=== PATIENT | male | born 1960 | race Asian ===

== ENCOUNTER 2018-10-03 10:25 | Inpatient (IN) | payer BC, OTHER ==
[~2018-10-03] VITALS: Ht 172.7 cm; Wt 120.9 kg
[~2018-10-03 10:25] MED LIST: ASPI-1158 PO; ASPI-986 PO; COR25 PO; FEBU40TA PO; FURO-151 PO; INSU100I3 SQ; INSU3INS6 SQ; LIRA0.6P SQ; LOSA25TA12 PO; PRAS10TA6 PO; ROSU10TA PO; proair
[2018-10-03 12:26] LABS: HEMATOCRIT. 48.8 % (42.0-52.0); HEMOGLOBIN. 15.5 g/dL (14.0-18.0); MEAN CORPUSCULAR VOLUME 88.4 fL (80.0-94.0); MEAN PLATELET VOLUME 8.9 fl (7.4-10.4); PLATELET 158 x1000/uL (130-400); RED BLOOD CELL COUNT 5.52 mill/uL (4.7-6.1); RED CELL DISTRIBUTION WIDTH 20.5 % (11.6-14.6)
[2018-10-03 12:34] LABS: CHLORIDE 108 mEq/L (98-107)
[2018-10-03 12:59] LABS: PLATELET ESTIMATE NORMAL
[2018-10-03] MEDS ORDERED: ENALAPRIL 2.5MG/2ML VIAL 2ML IV ONE (13:00)
[2018-10-03] MEDS ORDERED: FUROSEMIDE 40MG/4ML VIAL IVP ONE (13:00)
[2018-10-03] MEDS ORDERED: DEXTROSE 50% WATER 50ML SYRINGE IV PRN (13:45)
[2018-10-03] MEDS ORDERED: CLONIDINE 0.1MG TABLET PO PRN (17:00)
[2018-10-03] MEDS ORDERED: ONDANSETRON HCL 4MG/2ML INJ IV PRN (17:00)
[2018-10-03] MEDS ORDERED: ACETAMINOPHEN 325MG TABLET PO PRN (17:00)
[2018-10-03] MEDS ORDERED: HYDROCODONE/ACETAMINOPHEN 5/325MG TABLET PO PRN (17:00)
[2018-10-03] MEDS ORDERED: DOCUSATE SODIUM 100MG CAPSULE PO PRN (17:00)
[2018-10-03] MEDS ORDERED: MAGNESIUM/ALUMINUM HYDROXIDE/SIMETHICONE 30ML UDC PO PRN (17:00)
[2018-10-03 22:20] VITALS: BP 89/59
[2018-10-03 22:30] VITALS: BP 89/59
[2018-10-03] MEDS: INSULIN LISPRO 100 UNITS/ML SUBCUT SCH (23:00)
[2018-10-03] MEDS: LOSARTAN POTASSIUM 25 MG TABLET PO SCH (23:00)
[2018-10-03] MEDS ORDERED: BLOOD SUGAR DIAGNOSTIC STRIP TEST SCH (23:00)
[2018-10-03] MEDS: BLOOD SUGAR DIAGNOSTIC STRIP TEST SCH (23:00)
[2018-10-03] MEDS: CARVEDILOL 25MG TABLET PO SCH (23:00)
[2018-10-04] VITALS: BP 108/66
[2018-10-04] MEDS: FUROSEMIDE 100MG/10ML VIAL IVP SCH ×3 (00:48→21:27)
[2018-10-04 04:00] VITALS: BP 105/54
[2018-10-04] MEDS: BLOOD SUGAR DIAGNOSTIC STRIP TEST SCH ×4 (06:13→21:28)
[2018-10-04] MEDS: INSULIN LISPRO 100 UNITS/ML SUBCUT SCH ×4 (06:15→21:46)
[2018-10-04 06:55] LABS: HEMOGLOBIN. 15.2 g/dL (14.0-18.0); MEAN CORPUSCULAR HEMOGLOBIN 28.4 pg (28.0-32.0); MEAN CORPUSCULAR VOLUME 87.7 fL (80.0-94.0); MEAN PLATELET VOLUME 9.6 fl (7.4-10.4); PLATELET 155 x1000/uL (130-400); RED BLOOD CELL COUNT 5.36 mill/uL (4.7-6.1); RED CELL DISTRIBUTION WIDTH 19.8 % (11.6-14.6)
[2018-10-04 08:00] VITALS: BP 96/59
[2018-10-04] MEDS: CARVEDILOL 25MG TABLET PO SCH ×2 (09:00→21:27)
[2018-10-04] MEDS: LOSARTAN POTASSIUM 25 MG TABLET PO SCH (09:00)
[2018-10-04] MEDS: ASPIRIN 81MG EC TABLET PO SCH (10:26)
[2018-10-04 10:47] LABS: PLATELET ESTIMATE NORMAL
[2018-10-04 12:00] VITALS: BP 96/61
[2018-10-04] MEDS ORDERED: METOLAZONE 2.5MG TABLET PO NR (13:00)
[2018-10-04 16:00] VITALS: BP 114/71
[2018-10-04 20:00] VITALS: BP 106/57
[2018-10-04 20:31] LABS: CLARITY URINE CLEAR (CLEAR); COLOR URINE YELLOW (YELLOW); KETONES URINE NEGATIVE (NEGATIVE); LEUKOCYTE ESTERASE URINE NEGATIVE (NEGATIVE); NITRITE URINE NEGATIVE (NEGATIVE); OCCULT BLOOD URINE NEGATIVE (NEGATIVE); PROTEIN URINE 1+ (NEGATIVE); SPECIFIC GRAVITY URINE 1.008 (1.005-1.030); UROBILINOGEN URINE 0.2 E.U./dL (0.2-1.0)
[2018-10-04] MEDS: ENOXAPARIN 150MG/ML SYR SUBCUT SCH (22:56)
[2018-10-05] VITALS: BP 124/86
[2018-10-05 04:00] VITALS: BP 100/76
[2018-10-05] MEDS: BLOOD SUGAR DIAGNOSTIC STRIP TEST SCH ×4 (06:29→20:53)
[2018-10-05] MEDS: INSULIN LISPRO 100 UNITS/ML SUBCUT SCH ×4 (06:30→21:07)
[2018-10-05 08:01] VITALS: BP 106/71
[2018-10-05 08:03] LABS: HEMOGLOBIN. 14.5 g/dL (14.0-18.0); MEAN CORPUSCULAR HEMOGLOBIN 27.9 pg (28.0-32.0); MEAN CORPUSCULAR VOLUME 88.5 fL (80.0-94.0); MEAN PLATELET VOLUME 9.6 fl (7.4-10.4); PLATELET 139 x1000/uL (130-400); RED BLOOD CELL COUNT 5.19 mill/uL (4.7-6.1); RED CELL DISTRIBUTION WIDTH 20.3 % (11.6-14.6)
[2018-10-05 08:28] LABS: INR 1.3; PROTHROMBIN TIME 12.7 sec (9.1-11.1)
[2018-10-05] MEDS: CARVEDILOL 25MG TABLET PO SCH (09:00)
[2018-10-05] MEDS: FUROSEMIDE 100MG/10ML VIAL IVP SCH ×2 (09:06→20:52)
[2018-10-05] MEDS: ENOXAPARIN 150MG/ML SYR SUBCUT SCH ×2 (09:07→20:54)
[2018-10-05] MEDS: LOSARTAN POTASSIUM 25 MG TABLET PO SCH (09:08)
[2018-10-05] MEDS: ASPIRIN 81MG EC TABLET PO SCH (09:08)
[2018-10-05 12:07] VITALS: BP 119/73
[2018-10-05 12:17] LABS: PLATELET ESTIMATE NORMAL
[2018-10-05] MEDS ORDERED: IPRATROPIUM/ALBUTEROL 0.5-3(2.5)MG/3ML NEB HHN PRN (13:15)
[2018-10-05 16:00] VITALS: BP 113/73
[2018-10-05] MEDS: IPRATROPIUM BROMIDE (0.02%) 0.5MG/2.5ML NEB HHN SCH ×2 (16:39→20:43)
[2018-10-05] MEDS: BUDESONIDE 0.5MG/2ML NEB HHN SCH ×2 (16:39→20:43)
[2018-10-05] MEDS ORDERED: MAGNESIUM 1 G PREMIX 100 ML IV NR (17:00)
[2018-10-05] MEDS: METOLAZONE 5MG TABLET PO SCH (17:11)
[2018-10-05] MEDS: MAGNESIUM OXIDE 400MG TABLET PO SCH (17:12)
[2018-10-05 20:00] VITALS: BP 104/59
[2018-10-05] MEDS: CARVEDILOL 12.5MG TABLET PO SCH (20:53)
[2018-10-06] VITALS: BP 109/66
[2018-10-06 04:00] VITALS: BP 117/75
[2018-10-06] MEDS: IPRATROPIUM BROMIDE (0.02%) 0.5MG/2.5ML NEB HHN SCH ×4 (04:29→21:43)
[2018-10-06] MEDS: BLOOD SUGAR DIAGNOSTIC STRIP TEST SCH ×4 (06:29→21:17)
[2018-10-06] MEDS: INSULIN LISPRO 100 UNITS/ML SUBCUT SCH ×4 (06:29→21:27)
[2018-10-06 07:06] LABS: HEMATOCRIT. 43.9 % (42.0-52.0); HEMOGLOBIN. 14.1 g/dL (14.0-18.0); MEAN CORPUSCULAR HEMOGLOBIN 28.1 pg (28.0-32.0); MEAN CORPUSCULAR VOLUME 87.7 fL (80.0-94.0); MEAN PLATELET VOLUME 9.5 fl (7.4-10.4); PLATELET 145 x1000/uL (130-400); RED BLOOD CELL COUNT 5.01 mill/uL (4.7-6.1); RED CELL DISTRIBUTION WIDTH 19.4 % (11.6-14.6)
[2018-10-06 08:00] VITALS: BP 98/64
[2018-10-06] MEDS: CARVEDILOL 12.5MG TABLET PO SCH ×2 (08:27→21:00)
[2018-10-06] MEDS: LOSARTAN POTASSIUM 25 MG TABLET PO SCH (08:28)
[2018-10-06] MEDS: MAGNESIUM OXIDE 400MG TABLET PO SCH (08:38)
[2018-10-06] MEDS: ASPIRIN 81MG EC TABLET PO SCH (08:38)
[2018-10-06] MEDS: FUROSEMIDE 100MG/10ML VIAL IVP SCH ×3 (08:38→17:41)
[2018-10-06] MEDS: METOLAZONE 5MG TABLET PO SCH ×2 (08:38→17:41)
[2018-10-06] MEDS: ENOXAPARIN 150MG/ML SYR SUBCUT SCH ×2 (08:38→21:23)
[2018-10-06] MEDS: GUAIFENESIN 200MG/10ML SUGAR FREE UDC PO PRN ×2 (08:44→16:00)
[2018-10-06] MEDS: BUDESONIDE 0.5MG/2ML NEB HHN SCH ×2 (10:21→21:42)
[2018-10-06 12:00] VITALS: BP 112/74
[2018-10-06] MEDS ORDERED: METOLAZONE 5MG TABLET PO NR (15:00)
[2018-10-06 16:00] VITALS: BP 111/84
[2018-10-06 20:00] VITALS: BP 95/74
[2018-10-07] VITALS: BP 123/80
[2018-10-07] MEDS: IPRATROPIUM BROMIDE (0.02%) 0.5MG/2.5ML NEB HHN SCH ×4 (01:15→21:49)
[2018-10-07 02:58] LABS: PLATELET ESTIMATE NORMAL
[2018-10-07 04:00] VITALS: BP 128/77
[2018-10-07] MEDS: BLOOD SUGAR DIAGNOSTIC STRIP TEST SCH ×4 (05:54→20:39)
[2018-10-07] MEDS: INSULIN LISPRO 100 UNITS/ML SUBCUT SCH ×4 (05:55→20:51)
[2018-10-07 06:52] LABS: HEMOGLOBIN. 14.5 g/dL (14.0-18.0); MEAN CORPUSCULAR HEMOGLOBIN 28.1 pg (28.0-32.0); MEAN CORPUSCULAR VOLUME 87.4 fL (80.0-94.0); MEAN PLATELET VOLUME 9.1 fl (7.4-10.4); PLATELET 145 x1000/uL (130-400); RED BLOOD CELL COUNT 5.14 mill/uL (4.7-6.1); RED CELL DISTRIBUTION WIDTH 19.6 % (11.6-14.6)
[2018-10-07 08:00] VITALS: BP 105/52
[2018-10-07] MEDS: BUDESONIDE 0.5MG/2ML NEB HHN SCH ×2 (08:30→21:49)
[2018-10-07] MEDS: ASPIRIN 81MG EC TABLET PO SCH (08:57)
[2018-10-07] MEDS: MAGNESIUM OXIDE 400MG TABLET PO SCH ×2 (08:58→17:50)
[2018-10-07] MEDS: ENOXAPARIN 150MG/ML SYR SUBCUT SCH (08:58)
[2018-10-07] MEDS: FUROSEMIDE 100MG/10ML VIAL IVP SCH ×3 (08:58→17:50)
[2018-10-07] MEDS: CARVEDILOL 12.5MG TABLET PO SCH ×2 (08:58→20:49)
[2018-10-07] MEDS: GUAIFENESIN 200MG/10ML SUGAR FREE UDC PO PRN ×2 (08:58→17:50)
[2018-10-07] MEDS: METOLAZONE 5MG TABLET PO SCH ×2 (08:58→17:50)
[2018-10-07] MEDS: LOSARTAN POTASSIUM 25 MG TABLET PO SCH (08:59)
[2018-10-07] MEDS ORDERED: MAGNESIUM 2 G PREMIX 50 ML IV NR (09:00)
[2018-10-07 12:00] VITALS: BP 111/72
[2018-10-07 12:40] LABS: PLATELET ESTIMATE NORMAL
[2018-10-07 16:00] VITALS: BP 111/70
[2018-10-07] MEDS ORDERED: ENOXAPARIN 150MG/ML SYR SUBCUT SCH (16:27)
[2018-10-07 20:00] VITALS: BP 116/78
[2018-10-07] MEDS: ENOXAPARIN 120MG/0.8ML SYR SUBCUT SCH (21:00)
[2018-10-08] VITALS: BP 112/64
[2018-10-08] MEDS: IPRATROPIUM BROMIDE (0.02%) 0.5MG/2.5ML NEB HHN SCH ×3 (01:38→21:53)
[2018-10-08 04:00] VITALS: BP 129/83
[2018-10-08] MEDS: BLOOD SUGAR DIAGNOSTIC STRIP TEST SCH ×4 (06:02→21:32)
[2018-10-08] MEDS: INSULIN LISPRO 100 UNITS/ML SUBCUT SCH ×4 (06:02→21:39)
[2018-10-08 08:00] VITALS: BP 108/74
[2018-10-08] MEDS: LOSARTAN POTASSIUM 25 MG TABLET PO SCH (09:00)
[2018-10-08 09:27] LABS: HEMATOCRIT. 48.1 % (42.0-52.0); HEMOGLOBIN. 15.4 g/dL (14.0-18.0); MEAN CORPUSCULAR HEMOGLOBIN 28.3 pg (28.0-32.0); MEAN CORPUSCULAR VOLUME 88.5 fL (80.0-94.0); MEAN PLATELET VOLUME 9.1 fl (7.4-10.4); PLATELET 146 x1000/uL (130-400); RED BLOOD CELL COUNT 5.44 mill/uL (4.7-6.1); RED CELL DISTRIBUTION WIDTH 19.4 % (11.6-14.6)
[2018-10-08] MEDS: METOLAZONE 5MG TABLET PO SCH ×2 (09:29→17:59)
[2018-10-08] MEDS: ASPIRIN 81MG EC TABLET PO SCH (09:29)
[2018-10-08] MEDS: MAGNESIUM OXIDE 400MG TABLET PO SCH ×2 (09:29→17:59)
[2018-10-08] MEDS: FUROSEMIDE 100MG/10ML VIAL IVP SCH ×2 (09:30→12:59)
[2018-10-08] MEDS: CARVEDILOL 12.5MG TABLET PO SCH ×2 (09:39→21:40)
[2018-10-08] MEDS: BUDESONIDE 0.5MG/2ML NEB HHN SCH (10:08)
[2018-10-08 10:53] LABS: PLATELET ESTIMATE NORMAL
[2018-10-08 12:00] VITALS: BP 119/85
[2018-10-08] MEDS ORDERED: METOLAZONE 10MG TABLET PO NR (12:00)
[2018-10-08] MEDS: ENOXAPARIN 120MG/0.8ML SYR SUBCUT SCH (13:04)
[2018-10-08] MEDS: BUMETANIDE 1MG/4ML VIAL IV SCH (15:48)
[2018-10-08 16:00] VITALS: BP 119/80
[2018-10-08 20:00] VITALS: BP 132/75
[2018-10-09] VITALS: BP 124/83
[2018-10-09] MEDS: ENOXAPARIN 150MG/ML SYR SUBCUT SCH ×2 (00:22→11:43)
[2018-10-09] MEDS: GUAIFENESIN 200MG/10ML SUGAR FREE UDC PO PRN (00:22)
[2018-10-09] MEDS: IPRATROPIUM BROMIDE (0.02%) 0.5MG/2.5ML NEB HHN SCH ×5 (03:05→21:22)
[2018-10-09 04:00] VITALS: BP 120/83
[2018-10-09 06:11] LABS: HEMATOCRIT. 45.2 % (42.0-52.0); HEMOGLOBIN. 14.3 g/dL (14.0-18.0); MEAN CORPUSCULAR HEMOGLOBIN 27.7 pg (28.0-32.0); MEAN CORPUSCULAR VOLUME 87.4 fL (80.0-94.0); MEAN PLATELET VOLUME 9.6 fl (7.4-10.4); PLATELET 150 x1000/uL (130-400); RED BLOOD CELL COUNT 5.17 mill/uL (4.7-6.1); RED CELL DISTRIBUTION WIDTH 19.7 % (11.6-14.6)
[2018-10-09] MEDS: BLOOD SUGAR DIAGNOSTIC STRIP TEST SCH ×4 (06:12→20:16)
[2018-10-09] MEDS: INSULIN LISPRO 100 UNITS/ML SUBCUT SCH ×4 (06:13→21:15)
[2018-10-09 08:00] VITALS: BP 117/77
[2018-10-09] MEDS: METOLAZONE 5MG TABLET PO SCH ×2 (08:51→17:26)
[2018-10-09] MEDS: ASPIRIN 81MG EC TABLET PO SCH (08:51)
[2018-10-09] MEDS: CARVEDILOL 12.5MG TABLET PO SCH ×2 (08:52→20:12)
[2018-10-09] MEDS: LOSARTAN POTASSIUM 25 MG TABLET PO SCH (08:52)
[2018-10-09] MEDS: MAGNESIUM OXIDE 400MG TABLET PO SCH ×2 (08:52→17:26)
[2018-10-09] MEDS: BUMETANIDE 1MG/4ML VIAL IV SCH (11:44)
[2018-10-09 12:00] VITALS: BP 94/67
[2018-10-09] MEDS ORDERED: POTASSIUM CHLORIDE 20MEQ/PACKET PO NR (15:30)
[2018-10-09 16:00] VITALS: BP 106/73
[2018-10-09] MEDS ORDERED: BUMETANIDE 1MG/4ML VIAL IV NR (17:00)
[2018-10-09 17:09] LABS: PLATELET ESTIMATE NORMAL
[2018-10-09 20:00] VITALS: BP 111/84
[2018-10-10] VITALS: BP 119/80
[2018-10-10] MEDS: ENOXAPARIN 150MG/ML SYR SUBCUT SCH ×3 (00:29→23:19)
[2018-10-10] MEDS: IPRATROPIUM BROMIDE (0.02%) 0.5MG/2.5ML NEB HHN SCH ×4 (02:05→21:18)
[2018-10-10 04:00] VITALS: BP 122/93
[2018-10-10] MEDS: BLOOD SUGAR DIAGNOSTIC STRIP TEST SCH ×4 (06:42→21:11)
[2018-10-10] MEDS: INSULIN LISPRO 100 UNITS/ML SUBCUT SCH ×4 (06:43→21:58)
[2018-10-10 08:00] VITALS: BP 136/85
[2018-10-10] MEDS: MAGNESIUM OXIDE 400MG TABLET PO SCH ×2 (09:37→18:30)
[2018-10-10] MEDS: CARVEDILOL 12.5MG TABLET PO SCH ×2 (09:37→21:03)
[2018-10-10] MEDS: METOLAZONE 5MG TABLET PO SCH ×2 (09:37→18:30)
[2018-10-10] MEDS: LOSARTAN POTASSIUM 25 MG TABLET PO SCH (09:37)
[2018-10-10] MEDS: ASPIRIN 81MG EC TABLET PO SCH (09:37)
[2018-10-10 12:00] VITALS: BP 125/71
[2018-10-10] MEDS: ALBUMIN HUMAN 12.5GM/50ML (25%) IV SCH ×2 (12:32→17:38)
[2018-10-10] MEDS: BUMETANIDE 2.5MG/10ML VIAL IV SCH ×2 (12:33→18:30)
[2018-10-10 16:00] VITALS: BP 123/85
[2018-10-10 20:00] VITALS: BP 143/96
[2018-10-10] MEDS: GUAIFENESIN 200MG/10ML SUGAR FREE UDC PO PRN (21:03)
[2018-10-10] MEDS: MILRINONE 20MG-DEXT 5% PREMIX 100 ML IV PRN (23:23)
[2018-10-11] VITALS (10 sets, daily range): BP systolic 111–139; BP diastolic 48–93
[2018-10-11] MEDS: IPRATROPIUM BROMIDE (0.02%) 0.5MG/2.5ML NEB HHN SCH ×4 (02:27→21:26)
[2018-10-11 06:30] LABS: HEMATOCRIT. 43.8 % (42.0-52.0); HEMOGLOBIN. 14.3 g/dL (14.0-18.0); MEAN CORPUSCULAR HEMOGLOBIN 28.3 pg (28.0-32.0); MEAN CORPUSCULAR VOLUME 86.8 fL (80.0-94.0); MEAN PLATELET VOLUME 9.3 fl (7.4-10.4); PLATELET 129 x1000/uL (130-400); RED BLOOD CELL COUNT 5.05 mill/uL (4.7-6.1); RED CELL DISTRIBUTION WIDTH 19.4 % (11.6-14.6)
[2018-10-11 07:00] LABS: CHLORIDE 96 mEq/L (98-107)
[2018-10-11] MEDS: BLOOD SUGAR DIAGNOSTIC STRIP TEST SCH ×4 (08:24→21:00)
[2018-10-11] MEDS: CARVEDILOL 12.5MG TABLET PO SCH ×2 (09:00→22:36)
[2018-10-11] MEDS: GUAIFENESIN 200MG/10ML SUGAR FREE UDC PO PRN (09:00)
[2018-10-11] MEDS: ASPIRIN 81MG EC TABLET PO SCH (09:01)
[2018-10-11] MEDS: INSULIN LISPRO 100 UNITS/ML SUBCUT SCH ×4 (09:01→21:00)
[2018-10-11] MEDS: LOSARTAN POTASSIUM 25 MG TABLET PO SCH (09:02)
[2018-10-11] MEDS: METOLAZONE 5MG TABLET PO SCH ×2 (09:02→17:04)
[2018-10-11] MEDS: MAGNESIUM OXIDE 400MG TABLET PO SCH ×2 (09:02→17:04)
[2018-10-11 10:08] LABS: PLATELET ESTIMATE SLIGHTLY DECREASED
[2018-10-11] MEDS: MILRINONE 20MG-DEXT 5% PREMIX 100 ML IV PRN (12:25)
[2018-10-11] MEDS: ENOXAPARIN 150MG/ML SYR SUBCUT SCH (12:27)
[2018-10-11] MEDS ORDERED: BUMETANIDE 1MG/4ML VIAL IV SCH (13:00)
[2018-10-11] MEDS ORDERED: SODIUM CHLORIDE 0.9% IV SCH (14:00)
[2018-10-11] MEDS ORDERED: BUMETANIDE IV SCH ×2 (14:00)
[2018-10-11] MEDS: ALBUMIN HUMAN 12.5GM/50ML (25%) IV SCH ×2 (15:31→20:00)
[2018-10-12] VITALS (11 sets, daily range): BP systolic 107–144; BP diastolic 55–101
[2018-10-12] MEDS: IPRATROPIUM BROMIDE (0.02%) 0.5MG/2.5ML NEB HHN SCH ×4 (01:44→20:58)
[2018-10-12] MEDS ORDERED: ALBUMIN HUMAN 12.5GM/50ML (25%) IV SCH (04:00)
[2018-10-12] MEDS: BLOOD SUGAR DIAGNOSTIC STRIP TEST SCH ×4 (07:30→22:45)
[2018-10-12] MEDS: INSULIN LISPRO 100 UNITS/ML SUBCUT SCH ×4 (08:00→22:45)
[2018-10-12] MEDS: MILRINONE 20MG-DEXT 5% PREMIX 100 ML IV PRN ×2 (08:29→19:57)
[2018-10-12 08:30] LABS: HEMATOCRIT. 44.8 % (42.0-52.0); HEMOGLOBIN. 14.4 g/dL (14.0-18.0); MEAN CORPUSCULAR HEMOGLOBIN 28.1 pg (28.0-32.0); MEAN CORPUSCULAR VOLUME 87.5 fL (80.0-94.0); MEAN PLATELET VOLUME 9.8 fl (7.4-10.4); PLATELET 129 x1000/uL (130-400); RED BLOOD CELL COUNT 5.12 mill/uL (4.7-6.1); RED CELL DISTRIBUTION WIDTH 19.6 % (11.6-14.6)
[2018-10-12 08:36] LABS: CHLORIDE 97 mEq/L (98-107)
[2018-10-12] MEDS ORDERED: BUMETANIDE 1MG/4ML VIAL IV ONE (09:15)
[2018-10-12] MEDS: MAGNESIUM OXIDE 400MG TABLET PO SCH ×2 (10:00→18:18)
[2018-10-12] MEDS: ASPIRIN 81MG EC TABLET PO SCH (10:03)
[2018-10-12] MEDS: METOLAZONE 5MG TABLET PO SCH ×2 (10:03→18:18)
[2018-10-12] MEDS: LOSARTAN POTASSIUM 25 MG TABLET PO SCH (10:05)
[2018-10-12] MEDS: CARVEDILOL 12.5MG TABLET PO SCH ×2 (10:08→22:00)
[2018-10-12] MEDS ORDERED: SODIUM CHLORIDE 0.9% IV SCH (11:00)
[2018-10-12] MEDS ORDERED: BUMETANIDE IV SCH (11:00)
[2018-10-12] MEDS: ENOXAPARIN 150MG/ML SYR SUBCUT SCH ×2 (13:08)
[2018-10-12] MEDS: COLCHICINE 0.6MG TABLET PO PRN (18:18)
[2018-10-13] VITALS (12 sets, daily range): BP systolic 93–134; BP diastolic 60–77
[2018-10-13] MEDS: IPRATROPIUM BROMIDE (0.02%) 0.5MG/2.5ML NEB HHN SCH ×4 (02:10→20:43)
[2018-10-13] MEDS: MILRINONE 20MG-DEXT 5% PREMIX 100 ML IV PRN (07:04)
[2018-10-13 07:05] LABS: HEMATOCRIT. 42.6 % (42.0-52.0); HEMOGLOBIN. 13.7 g/dL (14.0-18.0); MEAN PLATELET VOLUME 9.6 fl (7.4-10.4); PLATELET 145 x1000/uL (130-400); RED BLOOD CELL COUNT 4.89 mill/uL (4.7-6.1); RED CELL DISTRIBUTION WIDTH 19.1 % (11.6-14.6)
[2018-10-13] MEDS: BLOOD SUGAR DIAGNOSTIC STRIP TEST SCH ×3 (08:27→17:39)
[2018-10-13] MEDS: MAGNESIUM OXIDE 400MG TABLET PO SCH ×2 (09:04→18:20)
[2018-10-13] MEDS: ASPIRIN 81MG EC TABLET PO SCH (09:04)
[2018-10-13] MEDS: CARVEDILOL 12.5MG TABLET PO SCH ×2 (09:05→21:00)
[2018-10-13] MEDS: METOLAZONE 5MG TABLET PO SCH ×2 (09:06→18:19)
[2018-10-13] MEDS: LOSARTAN POTASSIUM 25 MG TABLET PO SCH (09:06)
[2018-10-13] MEDS: INSULIN LISPRO 100 UNITS/ML SUBCUT SCH ×4 (09:10→21:38)
[2018-10-13] MEDS: COLCHICINE 0.6MG TABLET PO PRN ×2 (10:32→18:33)
[2018-10-13] MEDS ORDERED: BUMETANIDE 1MG/4ML VIAL IV ONE (10:45)
[2018-10-13] MEDS: ENOXAPARIN 150MG/ML SYR SUBCUT SCH ×2 (12:30)
[2018-10-13] MEDS ORDERED: SODIUM CHLORIDE 0.9% IV NR (13:00)
[2018-10-13] MEDS ORDERED: BUMETANIDE IV NR (13:00)
[2018-10-13 13:10] LABS: PLATELET ESTIMATE NORMAL
[2018-10-13 15:51] LABS: PLATELET ESTIMATE NORMAL
[2018-10-14] VITALS (12 sets, daily range): BP systolic 88–128; BP diastolic 61–85
[2018-10-14] MEDS: ENOXAPARIN 150MG/ML SYR SUBCUT SCH ×2 (01:07→12:19)
[2018-10-14] MEDS: IPRATROPIUM BROMIDE (0.02%) 0.5MG/2.5ML NEB HHN SCH ×4 (01:13→21:57)
[2018-10-14] MEDS: BLOOD SUGAR DIAGNOSTIC STRIP TEST SCH ×4 (07:30→21:27)
[2018-10-14] MEDS: INSULIN LISPRO 100 UNITS/ML SUBCUT SCH ×4 (08:00→21:27)
[2018-10-14] MEDS: METOLAZONE 5MG TABLET PO SCH ×2 (09:20→17:02)
[2018-10-14] MEDS: CARVEDILOL 12.5MG TABLET PO SCH ×2 (09:20→21:00)
[2018-10-14] MEDS: ASPIRIN 81MG EC TABLET PO SCH (09:21)
[2018-10-14] MEDS: LOSARTAN POTASSIUM 25 MG TABLET PO SCH (09:21)
[2018-10-14] MEDS: MAGNESIUM OXIDE 400MG TABLET PO SCH ×2 (09:22→17:03)
[2018-10-14] MEDS: BUMETANIDE 2.5MG/10ML VIAL IV SCH ×2 (15:14→17:02)
[2018-10-14] MEDS: DILTIAZEM HCL 30MG TABLET PO SCH (21:28)
[2018-10-14] MEDS: ENOXAPARIN 120MG/0.8ML SYR SUBCUT SCH (22:45)
[2018-10-15] VITALS (12 sets, daily range): BP systolic 108–149; BP diastolic 66–85
[2018-10-15] MEDS: DILTIAZEM HCL 30MG TABLET PO SCH ×3 (06:00→22:00)
[2018-10-15] MEDS: BLOOD SUGAR DIAGNOSTIC STRIP TEST SCH ×4 (07:23→21:00)
[2018-10-15] MEDS: INSULIN LISPRO 100 UNITS/ML SUBCUT SCH ×4 (07:23→22:10)
[2018-10-15] MEDS: IPRATROPIUM BROMIDE (0.02%) 0.5MG/2.5ML NEB HHN SCH ×4 (08:35→21:24)
[2018-10-15] MEDS: LOSARTAN POTASSIUM 25 MG TABLET PO SCH (08:51)
[2018-10-15] MEDS: ASPIRIN 81MG EC TABLET PO SCH (08:51)
[2018-10-15] MEDS: MAGNESIUM OXIDE 400MG TABLET PO SCH ×2 (08:51→17:14)
[2018-10-15] MEDS: METOLAZONE 5MG TABLET PO SCH ×2 (08:51→17:14)
[2018-10-15] MEDS: ENOXAPARIN 120MG/0.8ML SYR SUBCUT SCH ×2 (08:52→22:00)
[2018-10-15] MEDS: BUMETANIDE 2.5MG/10ML VIAL IV SCH ×2 (09:04→17:13)
[2018-10-15] MEDS: CARVEDILOL 12.5MG TABLET PO SCH ×2 (09:05→21:50)
[2018-10-16] VITALS (15 sets, daily range): BP systolic 107–128; BP diastolic 56–88
[2018-10-16] MEDS: DILTIAZEM HCL 30MG TABLET PO SCH ×3 (05:46→21:29)
[2018-10-16] MEDS: BLOOD SUGAR DIAGNOSTIC STRIP TEST SCH ×3 (07:30→21:00)
[2018-10-16] MEDS: INSULIN LISPRO 100 UNITS/ML SUBCUT SCH ×4 (08:00→21:38)
[2018-10-16 08:17] LABS: HEMATOCRIT. 46.8 % (42.0-52.0); HEMOGLOBIN. 14.9 g/dL (14.0-18.0); MEAN CORPUSCULAR HEMOGLOBIN 28.1 pg (28.0-32.0); MEAN CORPUSCULAR VOLUME 87.9 fL (80.0-94.0); MEAN PLATELET VOLUME 9.5 fl (7.4-10.4); PLATELET 168 x1000/uL (130-400); RED BLOOD CELL COUNT 5.32 mill/uL (4.7-6.1); RED CELL DISTRIBUTION WIDTH 19.4 % (11.6-14.6)
[2018-10-16] MEDS: ASPIRIN 81MG EC TABLET PO SCH (09:00)
[2018-10-16] MEDS: MAGNESIUM OXIDE 400MG TABLET PO SCH ×2 (09:00→16:53)
[2018-10-16] MEDS: LOSARTAN POTASSIUM 25 MG TABLET PO SCH (09:00)
[2018-10-16] MEDS: METOLAZONE 5MG TABLET PO SCH ×2 (09:00→16:53)
[2018-10-16] MEDS: CARVEDILOL 12.5MG TABLET PO SCH ×3 (09:00→21:29)
[2018-10-16] MEDS ORDERED: LIDOCAINE HCL 1% 20ML VIAL (Pyxis) INJ ONE (10:22)
[2018-10-16] MEDS ORDERED: IODIXANOL 320MG/ML 100 ML BOTTLE IV ONE (10:22)
[2018-10-16] MEDS ORDERED: ASPIRIN/SOD BICARB/CITRIC ACID 324MG TAB EFF ONE (10:26)
[2018-10-16] MEDS ORDERED: FENTANYL CITRATE/PF 50MCG/ML 2ML VIAL ONE (10:55)
[2018-10-16] MEDS ORDERED: MIDAZOLAM HCL 2 MG/2 ML VIAL ONE (10:55)
[2018-10-16] MEDS ORDERED: ONDANSETRON HCL 4MG/2ML INJ IV PRN (11:45)
[2018-10-16] MEDS ORDERED: ATROPINE SULFATE 1MG/10ML SYR IV PRN (11:45)
[2018-10-16] MEDS ORDERED: MORPHINE SULFATE 4 MG/ML CPJ (NOT FOR IM USE) IV PRN (11:45)
[2018-10-16] MEDS ORDERED: ACETAMINOPHEN 325MG TABLET PO PRN (11:45)
[2018-10-16] MEDS ORDERED: SODIUM CHLORIDE 0.45% 400 ML IV SCH (12:00)
[2018-10-16] MEDS ORDERED: CARVEDILOL 12.5MG TABLET PO SCH (13:00)
[2018-10-16] MEDS: COLCHICINE 0.6MG TABLET PO PRN (16:53)
[2018-10-16] MEDS ORDERED: METOLAZONE 10MG TABLET PO SCH (17:00)
[2018-10-16] MEDS ORDERED: NICARDIPINE 100MCG/ML 10ML VIAL (CATH LAB) IV ONE (17:07)
[2018-10-16] MEDS ORDERED: NITROGLYCERIN 50MCG/ML 10ML VIAL (CATH LAB) IV ONE (17:07)
[2018-10-16] MEDS ORDERED: HEPARIN SODIUM 1,000 UNIT/1ML VIAL IV ONE (17:07)
[2018-10-16] MEDS: IPRATROPIUM BROMIDE (0.02%) 0.5MG/2.5ML NEB HHN SCH (20:53)
[2018-10-16] MEDS: GUAIFENESIN 200MG/10ML SUGAR FREE UDC PO PRN (21:29)
[2018-10-16 22:48] LABS: PLATELET ESTIMATE NORMAL
[2018-10-17] VITALS (7 sets, daily range): BP systolic 99–123; BP diastolic 64–78
[2018-10-17] MEDS: IPRATROPIUM BROMIDE (0.02%) 0.5MG/2.5ML NEB HHN SCH (02:00)
[2018-10-17] MEDS: CARVEDILOL 12.5MG TABLET PO SCH (06:07)
[2018-10-17] MEDS: DILTIAZEM HCL 30MG TABLET PO SCH (06:07)
[2018-10-17 06:08] LABS: HEMATOCRIT. 46.7 % (42.0-52.0); MEAN CORPUSCULAR HEMOGLOBIN 28.2 pg (28.0-32.0); MEAN CORPUSCULAR VOLUME 87.8 fL (80.0-94.0); MEAN PLATELET VOLUME 9.4 fl (7.4-10.4); PLATELET 178 x1000/uL (130-400); RED BLOOD CELL COUNT 5.31 mill/uL (4.7-6.1); RED CELL DISTRIBUTION WIDTH 18.8 % (11.6-14.6)
[2018-10-17] MEDS: BLOOD SUGAR DIAGNOSTIC STRIP TEST SCH (06:08)
[2018-10-17] MEDS: ASPIRIN 81MG EC TABLET PO SCH (08:21)
[2018-10-17] MEDS: MAGNESIUM OXIDE 400MG TABLET PO SCH (08:21)
[2018-10-17] MEDS: METOLAZONE 5MG TABLET PO SCH (08:21)
[2018-10-17] MEDS: LOSARTAN POTASSIUM 25 MG TABLET PO SCH (08:21)
[2018-10-17] MEDS: INSULIN LISPRO 100 UNITS/ML SUBCUT SCH (08:22)
[2018-10-17] MEDS ORDERED: POTASSIUM CHLORIDE 20MEQ/PACKET PO NR (09:45)
[2018-10-17 11:32] LABS: PLATELET ESTIMATE NORMAL
== END 2018-10-17 11:34 | disposition home or self-care (01) | DRG 673 ==
LOC: ER 10:25 → 5WST 13:17 → SUPCPDRO 16:49 → ENRESERV 21:28 → 5WST 10-04 00:19 → 5EST 10-10 23:09 → 3WST 10-16 12:11
PROVIDERS: ADMIT Hospitalist; ATTEND Hospitalist
PROC: 0JBP0ZZ Excision of Left Lower Leg Subcutaneous Tissue and Fascia, Open Approach (ICD-10-PCS; 2018-10-03)
PROC: 5A09457 Assistance with Respiratory Ventilation, 24-96 Consecutive Hours, Continuous Positive Airway Pressure (ICD-10-PCS; 2018-10-03)
PROC: 5A09357 Assistance with Respiratory Ventilation, Less than 24 Consecutive Hours, Continuous Positive Airway Pressure (ICD-10-PCS; 2018-10-08)
PROC: 5A09357 Assistance with Respiratory Ventilation, Less than 24 Consecutive Hours, Continuous Positive Airway Pressure (ICD-10-PCS; 2018-10-09)
PROC: 5A09357 Assistance with Respiratory Ventilation, Less than 24 Consecutive Hours, Continuous Positive Airway Pressure (ICD-10-PCS; 2018-10-10)
PROC: 5A09357 Assistance with Respiratory Ventilation, Less than 24 Consecutive Hours, Continuous Positive Airway Pressure (ICD-10-PCS; 2018-10-11)
PROC: 5A09357 Assistance with Respiratory Ventilation, Less than 24 Consecutive Hours, Continuous Positive Airway Pressure (ICD-10-PCS; 2018-10-12)
PROC: 5A09357 Assistance with Respiratory Ventilation, Less than 24 Consecutive Hours, Continuous Positive Airway Pressure (ICD-10-PCS; 2018-10-13)
PROC: 5A09357 Assistance with Respiratory Ventilation, Less than 24 Consecutive Hours, Continuous Positive Airway Pressure (ICD-10-PCS; 2018-10-14)
PROC: 5A09357 Assistance with Respiratory Ventilation, Less than 24 Consecutive Hours, Continuous Positive Airway Pressure (ICD-10-PCS; 2018-10-15)
PROC: 4A023N7 Measurement of Cardiac Sampling and Pressure, Left Heart, Percutaneous Approach (ICD-10-PCS; principal; 2018-10-16)
PROC: B2111ZZ Fluoroscopy of Multiple Coronary Arteries using Low Osmolar Contrast (ICD-10-PCS; 2018-10-16)
PROC: 5A09357 Assistance with Respiratory Ventilation, Less than 24 Consecutive Hours, Continuous Positive Airway Pressure (ICD-10-PCS; 2018-10-16)
PROC: 5A09357 Assistance with Respiratory Ventilation, Less than 24 Consecutive Hours, Continuous Positive Airway Pressure (ICD-10-PCS; 2018-10-17)
DX: N17.9 Acute kidney failure, unspecified (principal); J96.20 Acute and chronic respiratory failure, unspecified whether with hypoxia or hypercapnia; I50.43 Acute on chronic combined systolic (congestive) and diastolic (congestive) heart failure; E43 Unspecified severe protein-calorie malnutrition; I13.0 Hypertensive heart and chronic kidney disease with heart failure and stage 1 through stage 4 chronic kidney disease, or unspecified chronic kidney disease; D68.59 Other primary thrombophilia; E66.2 Morbid (severe) obesity with alveolar hypoventilation; Z68.41 Body mass index [BMI] 40.0-44.9, adult; I48.92 Unspecified atrial flutter; J84.9 Interstitial pulmonary disease, unspecified; I87.8 Other specified disorders of veins; E11.65 Type 2 diabetes mellitus with hyperglycemia; I25.5 Ischemic cardiomyopathy; E11.22 Type 2 diabetes mellitus with diabetic chronic kidney disease; E78.5 Hyperlipidemia, unspecified; E11.42 Type 2 diabetes mellitus with diabetic polyneuropathy; G47.33 Obstructive sleep apnea (adult) (pediatric); I25.10 Atherosclerotic heart disease of native coronary artery without angina pectoris; M10.9 Gout, unspecified; J45.909 Unspecified asthma, uncomplicated; I87.2 Venous insufficiency (chronic) (peripheral); N50.89 Other specified disorders of the male genital organs; E11.21 Type 2 diabetes mellitus with diabetic nephropathy; N18.3 Chronic kidney disease, stage 3 (moderate); E11.51 Type 2 diabetes mellitus with diabetic peripheral angiopathy without gangrene; I48.2 Chronic atrial fibrillation; Z79.4 Long term (current) use of insulin; Z91.14 Patient's other noncompliance with medication regimen; Z89.422 Acquired absence of other left toe(s); Z83.3 Family history of diabetes mellitus; Z82.49 Family history of ischemic heart disease and other diseases of the circulatory system; Z95.5 Presence of coronary angioplasty implant and graft; Z95.810 Presence of automatic (implantable) cardiac defibrillator; I25.2 Old myocardial infarction; Z79.899 Other long term (current) drug therapy; Z79.82 Long term (current) use of aspirin
CPT/HCPCS: 36415; 71045; 76870; 80048; 80061; 82962; 83036; 83735; 83880; 84484; 93005; 93306; 93458; 93970; 93976; 94640; 94660; 96374; 96375; 97162; 97535; 99285; A6261; C1769; C1887; C1893; C1894; J1644; J1650; J1815; J1940; J2250; J2260; J3010; J3475; J3490; J7050; J7620; J7626; P9047; Q9967